=== PATIENT | female | born 1940 | race Caucasian/White ===

== ENCOUNTER 2023-03-20 22:18 | Inpatient (IN) | payer MEDICARE, BC ==
[2023-03-21] MEDS ORDERED: Ondansetron 4 MG/2 ML SDV IVPUSH ONE (00:06)
[2023-03-21] MEDS ORDERED: Sodium Chloride 0.9% 1,000 ML IV ONE (00:07)
[2023-03-21 00:30] LABS: A/G RATIO 1.1 (0.9-1.6); BILIRUBIN TOTAL 1.1 mg/dL (0.2-1.0); CALCIUM 9.3 mg/dL (8.5-10.1); CARBON DIOXIDE,CO2 22.4 mmol/L (21.0-32.0); CREATININE 1.4 mg/dL (0.6-1.0); EST CRCL DRUG DOSING (CG) 25.83 mL/min; POTASSIUM,K 3.7 mmol/L (3.5-5.1); PROTEIN TOTAL,TP 7.5 g/dL (6.4-8.2)
[2023-03-21 00:35] LABS: BASOPHILS PERCENT AUTO 0.2 % (0.0-1.5); HEMATOCRIT 48.9 % (36.0-46.0); HEMOGLOBIN 16.8 g/dL (12.0-16.0); LYMPHOCYTES ABSOLUTE AUTO 0.8 K/uL (0.6-2.4); LYMPHOCYTES PERCENT AUTO 7.5 % (16.0-40.0); MEAN CORPUSCULAR HEMOGLOBIN 31.9 pg (27.0-32.0); MEAN CORPUSCULAR HGB CONC 34.4 g/dL (31.0-37.0); MONOCYTES ABSOLUTE AUTO 0.5 K/uL (0.0-0.8); MONOCYTES PERCENT AUTO 4.4 % (0.0-15.0); NEUTROPHILS ABSOLUTE AUTO 9.3 K/uL (1.4-5.7); NEUTROPHILS PERCENT AUTO 87.9 % (48.0-80.0); NRBC ABSOLUTE 0 K/uL; PLATELET COUNT,PLT 179 K/uL (150-400); RED BLOOD CELL COUNT 5.26 M/uL (4.30-5.90); WHITE BLOOD CELL COUNT,WBC 10.61 K/uL (4.0-11.0)
[2023-03-21] MEDS ORDERED: Iopamidol 755 MG/ML 500 ML Multipack Bottle IVPUSH ONE (00:57)
[2023-03-21] MEDS ORDERED: Benzocaine 20% Topical Spray UD MUCMEM ONE (02:08)
[2023-03-21] MEDS ORDERED: fentaNYL 50 MCG/ML SDV IVPUSH ONE (03:10)
[2023-03-21] MEDS ORDERED: Sodium Chloride 0.9% 10 ML Syringe FLUSH PRN (07:47)
[2023-03-21] MEDS ORDERED: Sodium Chloride 0.9% 2.5 ML Syringe FLUSH PRN (07:47)
[2023-03-21] MEDS ORDERED: Ondansetron 4 MG/2 ML SDV IVPUSH PRN (07:47)
[2023-03-21] MEDS: Pantoprazole 40 MG in Sodium Chloride 0.9% 10 ML IVPUSH SCH (08:13)
[2023-03-21 09:41] LABS: BASOPHILS PERCENT AUTO 0.1 % (0.0-1.5); HEMATOCRIT 46.7 % (36.0-46.0); HEMOGLOBIN 15.9 g/dL (12.0-16.0); LYMPHOCYTES PERCENT AUTO 11.5 % (16.0-40.0); MEAN CORPUSCULAR HEMOGLOBIN 31.8 pg (27.0-32.0); MEAN CORPUSCULAR VOLUME 93.4 fL (80.0-98.0); MONOCYTES ABSOLUTE AUTO 0.3 K/uL (0.0-0.8); MONOCYTES PERCENT AUTO 3.9 % (0.0-15.0); NEUTROPHILS ABSOLUTE AUTO 7.2 K/uL (1.4-5.7); NEUTROPHILS PERCENT AUTO 84.5 % (48.0-80.0); NRBC ABSOLUTE 0 K/uL; PLATELET COUNT,PLT 169 K/uL (150-400); WHITE BLOOD CELL COUNT,WBC 8.46 K/uL (4.0-11.0)
[2023-03-21] MEDS: Heparin Sodium 5,000 Units/ML Vial SUBCUT SCH ×2 (09:50→20:19)
[2023-03-21 10:05] LABS: CALCIUM 8.2 mg/dL (8.5-10.1); CARBON DIOXIDE,CO2 22.5 mmol/L (21.0-32.0); CREATININE 1.1 mg/dL (0.6-1.0); EST CRCL DRUG DOSING (CG) 32.87 mL/min; MAGNESIUM 1.8 mg/dL (1.8-2.4); POTASSIUM,K 3.9 mmol/L (3.5-5.1)
[2023-03-21] MEDS: Phenol 1.4% Oral Spray 177 ML Bottle MUCMEM PRN ×2 (11:26→15:08)
[2023-03-21] MEDS: Sodium Chloride 0.9% 1,000 ML IV SCH (15:04)
[2023-03-22] MEDS: Sodium Chloride 0.9% 1,000 ML IV SCH (03:16)
[2023-03-22] MEDS: Pantoprazole 40 MG in Sodium Chloride 0.9% 10 ML IVPUSH SCH ×2 (05:52→06:46)
[2023-03-22 06:14] LABS: BASOPHILS PERCENT AUTO 0.4 % (0.0-1.5); EOSINOPHILS ABSOLUTE AUTO 0.1 K/uL (0.0-0.7); EOSINOPHILS PERCENT AUTO 1.1 % (0.0-7.0); HEMATOCRIT 42.9 % (36.0-46.0); HEMOGLOBIN 14.1 g/dL (12.0-16.0); LYMPHOCYTES ABSOLUTE AUTO 2.1 K/uL (0.6-2.4); LYMPHOCYTES PERCENT AUTO 28.4 % (16.0-40.0); MEAN CORPUSCULAR HEMOGLOBIN 31.3 pg (27.0-32.0); MEAN CORPUSCULAR HGB CONC 32.9 g/dL (31.0-37.0); MEAN CORPUSCULAR VOLUME 95.3 fL (80.0-98.0); MONOCYTES ABSOLUTE AUTO 0.7 K/uL (0.0-0.8); MONOCYTES PERCENT AUTO 9.2 % (0.0-15.0); NEUTROPHILS ABSOLUTE AUTO 4.5 K/uL (1.4-5.7); NEUTROPHILS PERCENT AUTO 60.9 % (48.0-80.0); NRBC ABSOLUTE 0 K/uL; PLATELET COUNT,PLT 143 K/uL (150-400)
[2023-03-22 06:56] LABS: CALCIUM 8.1 mg/dL (8.5-10.1); CARBON DIOXIDE,CO2 24.8 mmol/L (21.0-32.0); CREATININE 1.1 mg/dL (0.6-1.0); EST CRCL DRUG DOSING (CG) 32.87 mL/min; PHOSPHORUS 2.3 mg/dL (2.6-4.7); POTASSIUM,K 3.5 mmol/L (3.5-5.1)
[2023-03-22] MEDS: Heparin Sodium 5,000 Units/ML Vial SUBCUT SCH ×2 (08:04→20:11)
[2023-03-23] MEDS: Heparin Sodium 5,000 Units/ML Vial SUBCUT SCH (09:12)
== END 2023-03-23 08:40 | disposition home or self-care (01) | DRG 390 ==
LOC: MW.ED 22:18 → MW.MS 03-21 02:21
PROVIDERS: ADMIT Family Medicine; ATTEND Family Medicine
PROC: 0D9670Z Drainage of Stomach with Drainage Device, Via Natural or Artificial Opening (ICD-10-PCS; principal; 2023-03-21)
DX: K56.609 Unspecified intestinal obstruction, unspecified as to partial versus complete obstruction (principal); E86.0 Dehydration; I10 Essential (primary) hypertension; F03.90 Unspecified dementia, unspecified severity, without behavioral disturbance, psychotic disturbance, mood disturbance, and anxiety; R07.0 Pain in throat; Z90.710 Acquired absence of both cervix and uterus; Z90.49 Acquired absence of other specified parts of digestive tract; Z90.13 Acquired absence of bilateral breasts and nipples; Z79.01 Long term (current) use of anticoagulants; Z79.899 Other long term (current) drug therapy
CPT/HCPCS: 36415; 71045; 74018; 74177; 80053; 85025; 96361; 96374; 99285; J2405; J7030; Q9967; 74019; 74019-26; 80048; 82947; 83735; 84100; A9270-GY; C9113; J1644; J3010; J3490